=== PATIENT | female | born 1980 | race Caucasian/White ===

== ENCOUNTER 2020-10-17 04:58 | Day surgery (SDC) | payer BC ==
[2020-10-17 10:33] VITALS: BMI 28.8
[2020-10-17 12:40] VITALS: TEMP 98
[2020-10-17 13:28] VITALS: BP 103/61; PULSE 51
== END 2020-10-17 14:27 | disposition home or self-care (01) ==
LOC: JASU-ENDO 04:58
PROVIDERS: ATTEND Internal Medicine Gastroenterology
PROC: 0DJD8ZZ Inspection of Lower Intestinal Tract, Via Natural or Artificial Opening Endoscopic (ICD-10-PCS; principal; 2020-10-17 11:00)
DX: K56.609 Unspecified intestinal obstruction, unspecified as to partial versus complete obstruction (principal); K64.8 Other hemorrhoids; R10.84 Generalized abdominal pain
CPT/HCPCS: 81025